=== PATIENT | female | born 1975 | race Caucasian/White ===

== ENCOUNTER 2020-05-05 22:15 | Emergency (ER) | payer MEDICAID ==
[~2020-05-05] VITALS: Ht 147.3 cm; Wt 67.0 kg
[2020-05-05] MEDS ORDERED: NAPROXEN 250MG TABLET PO ONE (23:45)
[2020-05-05] MEDS ORDERED: ACETAMINOPHEN WITH CODEINE 300/30MG TABLET PO ONE (23:45)
[2020-05-06 01:40] VITALS: BP 116/75
== END 2020-05-06 01:41 | disposition home or self-care (01) ==
LOC: ER 22:15
DX: S92.352A Displaced fracture of fifth metatarsal bone, left foot, initial encounter for closed fracture (principal); S63.592A Other specified sprain of left wrist, initial encounter; W18.39XA Other fall on same level, initial encounter; Y93.89 Activity, other specified; Y92.89 Other specified places as the place of occurrence of the external cause; Y99.8 Other external cause status; Z88.0 Allergy status to penicillin
CPT/HCPCS: 29515; 73110; 73610; 73630; 99284; Z7610